=== PATIENT | female | born 1960 ===

== ENCOUNTER → 2017-02-04 | Outpatient (CLI) | payer MEDICAID ==
[2017-02-04 16:26] LABS: Basophils % (A) 0 %; CH 34.1; CHCM 33.4; Eosinophils # (A) 0.1 k/uL (0-0.7); Eosinophils % (A) 1 %; HDW 2.28; Luc # (Auto) 0.12; Luc % (Auto) 1; Lymphocytes # (A) 2.5 k/uL (1.0-4.8); Lymphocytes % (A) 28 %; MCH 33.4 pg (25.0-35.0); MCHC 32.5 g/dL (31.0-37.0); MCV 102.7 fL (80.0-100.0); Macrocytosis Slight; Mean Platelet Volume 7.5; Monocytes # (A) 0.4 k/uL (0-1.0); Monocytes % (A) 4 %; Neutrophils # (A) 5.8 k/uL (1.3-7.7); Neutrophils % (A) 65 %; RBC 4.19 m/uL (3.80-5.40); RDW 14.4 % (11.5-15.5); WBC 8.8 k/uL (3.8-10.6); WBC (Perox) 8.75
[2017-02-04 16:34] LABS: INR 0.9 (<1.2); Partial Thromboplastin Time 23.6 sec (22.0-30.0); Prothrombin Time 9.4 sec (9.0-12.0)
[2017-02-04 17:05] LABS: ALT 28 U/L (9-52); AST 19 U/L (14-36); Alkaline Phosphatase 62 U/L (38-126); Anion Gap 7 mmol/L; Blood Urea Nitrogen 17 mg/dL (7-17); Calcium 9.6 mg/dL (8.4-10.2); Carbon Dioxide 28 mmol/L (22-30); Chloride 104 mmol/L (98-107); Glucose 74 mg/dL (74-99); Non-African American GFR(MDRD) >60 (>60 ml/min/1.73 sqM); Potassium 4.1 mmol/L (3.5-5.1); Sodium 139 mmol/L (137-145); Total Bilirubin 0.2 mg/dL (0.2-1.3); Total Protein 6.8 g/dL (6.3-8.2)
== END | disposition home or self-care (01) ==
LOC: LABWHC1 16:00
PROVIDERS: ATTEND Family Medicine
DX: T14.8 Other injury of unspecified body region (principal); R00.0 Tachycardia, unspecified
CPT/HCPCS: 36415; 80053; 85025; 85610; 85730

== ENCOUNTER → 2017-05-09 | Outpatient (CLI) | payer MEDICAID | END | disposition home or self-care (01) | LOC: LABWHC1 08:39 | PROVIDERS: ATTEND Family Medicine | DX: T14.8XXA Other injury of unspecified body region, initial encounter (principal); L65.9 Nonscarring hair loss, unspecified | CPT/HCPCS: 36415; 84439; 84443; 84481 ==

== ENCOUNTER → 2017-06-13 | Outpatient (CLI) | payer MEDICAID ==
[2017-06-13 17:00] LABS: DHEA Sulfate 45.3 ug/dL (26.0-430.0)
== END | disposition home or self-care (01) ==
LOC: LABWHC1 11:38
PROVIDERS: ATTEND Dermatology
DX: L65.9 Nonscarring hair loss, unspecified (principal)
CPT/HCPCS: 36415; 82627; 84403; 86038

== ENCOUNTER → 2018-11-23 | Outpatient (CLI) | payer BC ==
[2018-11-23 10:16] VITALS: BP 100/61; PULSE 100; RESP 16; TEMP 98.1; BMI 20.2
--- NOTE | 2018-11-23 11:57 | P.HPOB ---
History of Present Illness H&P Date: 11/23/18 Chief Complaint: The patient is here for her routine gynecologic exam and ma mmogram. This is a 58-year-old G2 PII within LMP of 2003. The patient is here to establish with this office. She states that has been about 3 years since her last pelvic exam. She is without gynecologic complaints and denies any postmenopausal bleeding. She is requesting screening blood work since she infrequently sees her primary care physician. Review of Systems The patient's weight has been stable over the last year. She denies respiratory, cardiac, or G.I. problems. Past Medical History Additional Past Medical History / Comment(s): Arthritis and chronic back problems. Osteoporosis by bone density testing in 2016. PAST [employer] HISTORY: She has no history of STDs. History of Any Multi-Drug Resistant Organisms: None Reported Past Surgical History: Breast Surgery Additional Past Surgical History / Comment(s): Bilateral silicone breast implant s in the 1980s. Colonoscopy 2009(2nd) Past Psychological History: No Psychological Hx Reported Smoking Status: Current every day smoker (About 2 packs per week) Past Alcohol Use History: None Reported Past Drug Use History: None Reported Additional History: She has been since 2017 and this is her 2nd marriage. 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 - Past Family History Father Family Medical History: Myocardial Infarction (NH) Mother Family Medical History: Cancer Additional Family Medical History / Comment(s): Liver cancer. Medications and Allergies Home Medications Medication Instructions Recorded Confirmed Type Doxycycline [Vibramycin] 100 mg PO BID 11/23/18 11/23/18 History Ibuprofen 800 mg PO 11/23/18 History Multivitamin [Multivitamins Adult 1 each PO 11/23/18 History Gummies] Allergies Allergy/AdvReac Type Severity Reaction Status Date / Time No Known Allergies Allergy Unverified 11/23/18 10:17 Exam Vital Signs Temp Pulse Resp BP Pulse Ox 11/23/18 09:59 98.1 F 100 16 100/61 96 Intake and Output 11/22/18 11/23/18 11/23/18 22:59 06:59 14:59 Other: Weight 65.771 kg Height 5'11", weight 145 pounds, BMI 20.2. This is a well-developed well-nourished white female who is alert and oriented times 3 in no acute distress. HEENT: Within normal limits. NECK: Supple without mass or thyromegaly. CHEST AND LUNGS: Clear to auscultation. HEART: Regular rate and rhythm. BREASTS: Are without mass or discharge. Breasts are consistent with bilateral implants. AXILLARY EXAM: Negative for adenopathy. BACK: Negative for CVA tenderness. ABDOMEN: Soft, nontender, without palpable masses. PELVIC EXAM: Normal external genitalia with mild atrophy. Cervix and vagina appear normal with mild atrophy. There is no unusual discharge. There is no evidence of prolapse. The uterus is midposition, nongravid size and nontender. There are no palpable adnexal masses or tenderness. RECTAL EXAM: rectovaginal exam is negative for mass or tenderness and is negative for occult blood. EXTREMITIES: Nontender. IMPRESSION: 1. 58-year-old menopausal female with normal gynecologic exam. 2. History of osteoporosis from a 2016 bone density testing. PLAN: 1. Pap smear was performed. 2. Self breast awareness was discussed with the patient. 3. Screening mammogram will be done today. 4. Osteoporosis management was discussed. I have stressed the importance of adequate calcium, vitamin D, and regular exercise. I have also recommended that she quit smoking. We discussed medication treatment for osteoporosis to try to lower the risk for bone fracture. Information handouts on osteoporosis and Fosamax were given to the patient. We discussed possible risks with Fosamax including osteonecrosis of the jaw and risk for esophageal ulceration. She will consider this after reading the information. 5. Screening blood work will include fasting lipid profile, comprehensive chem panel, and hemoglobin A-1 C. 6.She was advised to return in one year for her annual well woman exam.
[2018-11-23 18:30] LABS: Albumin 4.7 g/dL (3.80-4.90); Albumin/Globulin Ratio 2.04 (1.60-3.17); Anion Gap 6.5 mmol/L (4.00-12.00); Calcium 9.7 mg/dL (8.7-10.3); Carbon Dioxide 24.5 mmol/L (21.6-31.8); Globulin 2.3 g/dL (1.6-3.3); LDL Cholesterol,Calculated 108.8 mg/dL (0.0-131.0); Potassium 3.8 mmol/L (3.5-5.5); Total Bilirubin 0.4 mg/dL (0.3-1.2); VLDL Calculation 21.2 mg/dL (5.00-40.00)
--- NOTE | 2018-11-24 09:59 | MM ---
Reason for exam: screening (asymptomatic). History: Patient is postmenopausal. Retro-pectoral silicone gel implants in both breasts, 1988. Physical Findings: A clinical breast exam by your physician is recommended on an annual basis and results should be correlated with mammographic findings. MG Screening Mammo Implant/CAD Bilateral CC and MLO view(s) were taken. No prior studies available for comparison. There are scattered fibroglandular densities. Stable benign calcifications. There is no discrete abnormality. No significant changes when compared with prior studies. ASSESSMENT: Benign, BI-RAD 2 RECOMMENDATION: Routine screening mammogram of both breasts in 1 year.
== END ==
LOC: WWCWWP 09:30
PROVIDERS: ATTEND Obstetrics & Gynecology
DX: Z12.31 Encounter for screening mammogram for malignant neoplasm of breast (principal); Z00.00 Encounter for general adult medical examination without abnormal findings
CPT/HCPCS: 77067; 80053; 80061